=== PATIENT | female | born 1955 | race Two or more races ===

== ENCOUNTER 2024-06-21 13:13 | Outpatient (REF) | payer MEDICARE, MEDICAID, SELFPAY ==
--- OUTSIDE RECORDS SUMMARY | 2024-06-21 16:53 | XMS_ITS | Patient Health Record ---
Author Organization [facility] Address [address] [facility] [place] [address] Care Team Providers Care Group President Name Role Phone Jimmie Liu Primary Care Provider Miranda Colon Unavailable [phone] Easton Quispe Unavailable [phone] Allergies Allergen (clinical drug ingredient) Drug/Non Drug Allergy documented on EMR Reaction Allergy Type Onset Date Status penicillin V Penicillin V Potassium hives Drug Allergy Active Reason For Referral Reason please evaluate and treat patient with chronic pain Diagnosis 1 Rheumatoid arthritis , unspecified (M06.9) Diagnosis 2 Low back pain, unspe cified (M54.50) Referral Organization [facility] Referring Provider First Name Easton Referring Provider Last Name Jose Enrique Referring Provider Speciality [facility] Referred Provider Pain Clinic, [facility] Referred Provider Specialty Pain Medicin e General Notes Sheila Colon MA 08/16/2023 01:19:40 PM >Letter printed and given to PTDamion MA, Nicole 08/16/2023 02:03:58 PM >faxed with attachments Referral Priority Routine Medications Medication SIG (Take, Route, Frequency, Duration) [...] than the total amount prescribed. 05/22/2024 Active Multivitamin - 1 tablet Orally Once a day for 30 day(s) 08/30/2021 Not-Taking Daily-Sun Multivitamin - TAKE 1 TABLET BY MOUTH EVERY DAY FOR 30 DAYS for 90 Not-Taking Morphine Sulfate 15 MG 1 tab(s) Orally Once a day for 30 days Partial Fill upon Patient Request The patient may fill this prescription for less than the total amount prescribed. 05/21/2024 Active Narcan 4 MG/0.1ML as directed Nasally once for 1 days Active Enbrel 50 MG/ML 1 ml Subcutaneous q week Active Ibuprofen 800 MG 1 tablet with food or milk as needed Orally Three times a day as needed for 90 days Active FLUoxetine HCl 20 MG TAKE 4 CAPSULES BY MOUTH DAILY for 90 days 90 day supply only - patient must be seen in office prior to any more refills Active Controlled Subs. Reviewed supervising physician reviewed with to fulfill regulatory 06/16/2010 Active Immunizations Vaccine Route Administration Date Status Comme nts FLU 19YRS through 64 YRS IM Intramuscular 01/18/2015 Admin istered upper Adacel (Tdap) adult purchased IM Intramuscular 01/18/2015 Administered PCV13 - Purchased IM Intramuscular 01/18/2015 Administered lower Flu Intradermal ID Intradermal 03/31/2016 Administered Pneumovax 23 Adult IM Intramuscular 03/31/2016 Administere d FLU 19YRS through 64 YRS IM Intramuscular 01/23/2019 Admin istered FLU 19YRS through 64 YRS IM Intramuscular 03/27/2020 Admin istered Flu - High Dose IM Intramuscular 03/04/2022 Administered Social History Tobacco Use: Social History Observation Description Date Details (start date - stop date) Current Smoker NA - NA Do you smoke? Question Answer Notes What is your smoking status? current smoker 1-2 cigs a week Are you interested in quitting? Not ready to krish t Patient counseled on the dangers of tobacco use: 01/27/2023 Problems Problem Type SNOMED Code ICD Code Onset Dates Problem Status W/U Status Risk Notes Problem 54805626 Other chronic pain (G89.29) Active confirmed Problem Rheumatoid arthritis (84961996) Rheumatoid arthritis, unspecified (M06.9) Active confirmed Problem [id number] Pain in right hand (M79.641) Active confirmed Problem 67867472 Recurrent major depressive disorder, in full remission (F33.42) Active confirmed Problem 863883250520650 Pain of left hand (M79.642) Active confirmed Problem 217987241 Low back pain, unspecified (M54.50) Active confirmed Vital Signs Heart Rate 80 /min 02/10/2024 Blood pressure diastolic 82 mm Hg 02/10/2024 Height 5 ft 8.25 in in 02/10/2024 Blood pressure systolic 136 mm Hg 02/10/2024 Weight 167 lbs 02/10/2024 BMI 25.2 kg/m2 02/10/2024 Encounters Encounter Location Date Provider Diagnosis [facility] [address] [place] [address] 08/16/2023 Easton Quispe Rheumatoid arthritis , unspecified M06.9 ; Low back pain, unspecified M54.50 and Screening for colon cancer Z12.11 [facility] [address] [place] [address] 11/17/2023 Miranda Isaiah Low back pain, unspecified M54.50 ; Other chronic pain G89.29 ; Cervicalgia M54.2 ; Rheumatoid arthritis, unspecified M06.9 and Recurrent major depressive disorder, in full remission F33.42 [facility] [address] [place] [address] 02/10/2024 Easton Quispe Low back pain, unspecified M54.50 ; Other chronic pain G89.29 ; Cervicalgia M54.2 and Rheumatoid arthritis, unspecified M06.9 [facility] [address] [place] [address] 07/05/2023 Miranda Isaiah Low back pain, unspecified M54.50 [facility] [address] [place] [address] 07/19/2023 Easton Quispe Low back pain, unspecified M54.50 [facility] [address] [place] [address] 07/20/2023 Jimmie Liu [facility] [address] [place] [address] 08/02/2023 Easton Quispe Low back pain, unspecified M54.50 [facility] [address] [place] [address] 08/10/2023 Jimmie Liu [facility] [address] [place] [address] 08/13/2023 Easton Quispe Low back pain, unspecified M54.50 [facility] [address] [place], [place] 08/20/2023 Easton Quispe Low back pain, unspecified M54.50 [facility] [address] [place], [place] 08/20/2023 Jimmie Alexa [facility] [address] [place], [place] 09/07/2023 Easton Quispe Low back pain, unspecified M54.50 [facility] [address] [place], [place] 09/08/2023 Jimmie Alexa [facility] [address] [place], [place] 09/17/2023 Easton Quispe Low back pain, unspecified M54.50 [facility] [address] [place], [place] 09/27/2023 Jimmie Guzman [facility] [address] [place], [place] 10/08/2023 Miranda Isaiah Low back pain, unspecified M54.50 [facility] [address] [place], [place] 10/12/2023 Easton Quispe Low back pain, unspecified M54.50 [facility] [address] [place], [place] 11/03/2023 Jimmie Mr Low back pain, unspecified M54.50 [facility] [address] [place], [place] 11/15/2023 Miranda Isaiah Low back pain, unspecified M54.50 [facility] [address] [place], [place] 12/13/2023 Miranda Isaiah Other chronic pain G89.29 [facility] [address] [place], [place] 01/10/2024 Jimmie Mruk Other chronic pain G89.29 [facility] [address] [place], [place] 02/02/2024 Easton Quispe Other chronic pain G89.29 [facility] [address] [place], [place] 03/17/2024 Jimmie Mruk Other chronic pain G89.29 [facility] [address] [place] [phone] 04/18/2024 Jimmie Liu Other chronic pain G89.29 [facility] [address] [place] [address] 05/15/2024 Jimmie Liu [facility] [address] [place] [address] 05/17/2024 Jimmie Liu Other chronic pain G89.29 [facility] [address] [place] [phone] 05/22/2024 Jimmie Liu Other chronic pain G89.29 Assessments Encounter Date Diagnosis (ICD Code) Assessment Notes Treatment Notes Treatment Clinical Notes Section Notes 08/16/2023 Rheumatoid arthritis, unspecified (ICD-10 - M06.9) referral placed for pain management for further evaluation 08/16/2023 Low back pain, unspecified (ICD-10 - M54.50) last dose of morphine ER is 8:00am, usually takes IR morphine around 1-2pm. referral placed for pain management for further evaluation 11/17/2023 Other chronic pain (ICD-10 - G89.29) Stable with current regimen. New contract reviewed and signs by patient. Will refill Narcan as well. Will continue to follow. 11/17/2023 Low back pain, unspecified (ICD-10 - M54.50) 02/10/2024 Other chronic pain (ICD-10 - G89.29) stable with medication 02/10/2024 Low back pain, unspecified (ICD-10 - M54.50) stable with medication 07/05/2023 Low back pain, unspecified (ICD-10 - M54.50) 07/19/2023 Low back pain, unspecified (ICD-10 - M54.50) 08/02/2023 Low back pain, unspecified (ICD-10 - M54.50) 08/13/2023 Low back pain, unspecified (ICD-10 - M54.50) 08/20/2023 Low back pain, unspecified (ICD-10 - M54.50) 09/07/2023 Low back pain, unspecified (ICD-10 - M54.50) 09/17/2023 Low back pain, unspecified (ICD-10 - M54.50) 10/08/2023 Low back pain, unspecified (ICD-10 - M54.50) 10/12/2023 Low back pain, unspecified (ICD-10 - M54.50) 11/03/2023 Low back pain, unspecified (ICD-10 - M54.50) 11/15/2023 Low back pain, unspecified (ICD-10 - M54.50) 12/13/2023 Other chronic pain (ICD-10 - G89.29) 01/10/2024 Other chronic pain (ICD-10 - G89.29) 02/02/2024 Other chronic pain (ICD-10 - G89.29) 03/17/2024 Other chronic pain (ICD-10 - G89.29) 04/18/2024 Other chronic pain (ICD-10 - G89.29) 05/17/2024 Other chronic pain (ICD-10 - G89.29) 05/22/2024 Other chronic pain (ICD-10 - G89.29) 08/16/2023 Screening for colon cancer (ICD-10 - Z12.11) patient refuses colonoscopy, cologuard, and IFOB. Discussed risks of no routine screening 11/17/2023 Cervicalgia (ICD-10 - M54.2) 02/10/2024 Cervicalgia (ICD-10 - M54.2) refuses injections in neck, stable with medication 11/17/2023 Rheumatoid arthritis, unspecified (ICD-10 - M06.9) Continue POC per Rheumatology 02/10/2024 Rheumatoid arthritis, unspecified (ICD-10 - M06.9) stable with medication 11/17/2023 Recurrent major depressive disorder, in full remission (ICD-10 - F33.42) Stable with current regimen Plan Of Treatment Pending Test Test Name Order Date [place] THIN PREP WITH HPV (TPGHPVB) 08/11 X ray : CHEST PA LATERAL 08/10/2014 MAMMOGRAM - SCREENING 08/12/2011 MAMMOGRAM - SCREENING 10/15/2012 MAMMOGRAM - SCREENING 01/16/2014 MAMMOGRAM - SCREENING 01/18/2015 MAMMOGRAM - SCREENING 03/31/2016 MAMMOGRAM - SCREENING 12/22/2016 MAMMOGRAM - SCREENING 06/02/2021 HCG Urine Qualitative 07/04/2009 [facility] Drugs of Abuse Panel 10/15/2009 [facility] Drugs of Abuse Panel 03/16/2011 [facility] Drugs of Abuse Panel 03/13/2013 [facility] Drugs of Abuse Panel 05/12/2013 [facility] Drugs of Abuse Panel 04/30/2014 [facility] Drugs of Abuse Panel 11/22/2015 Endocervical Curretage 07/04/2009 Dexa-hip and spine (outside facility) Dexa-hip and spine (outside facility) Dexa-hip and spine (outside facility) MAMMO RIGHT SCREEN 01/23/2019 Drug Panel NQFP [id number] 02/14/2018 NQ CSMP PANEL [id number] 04/15/2019 NQ CSMP PANEL [id number] 03/27/2020 NQFP CSMP PANEL [id number] 06/02/2021 NQ CSMP PANEL [id number] 07/13/2022 MAMMO SCREENING BILATERAL 3D WITH EMPERATRIZ 0 07/13/2022 Future Test Test Name Order Date IFOB (IMMUNOCHEMICAL OCC BLD)- NQ 2019 Insurance Providers Payer Name Payer Address Payer Phone Subscriber Number Group Number Insured Name Patient Relationship to Insured Coverage Start Date Coverage End Date Medicare [address] [place] [id number] SAMMI FRANKLIN Self - patient is the insured Medicaid [employer] [address] [place] [id number] SAMMI FRANKLIN Self - patient is the insured Medical (General) History Medical History History ICD Code RA depression bilateral breast implants 2017 [place] risk 11% chronic neck and back pain Surgical History Surgery Date(Month/Year) breast implants
[2024-06-21 17:55] LABS: MANUAL DIFF FLAG NO
[2024-06-21 18:11] LABS: Alanine Aminotransferase 7 U/L (0-31); Aspartate Amino Transferase 18 U/L (5-31); C Reactive Protein 0.12 mg/dL (< or = 0.50); Estimated Glomerular Filt Rate > 60
[2024-06-21 18:44] LABS: Basophils Absolute Auto 0.1 X10*3/uL (0.0-0.2); Basophils Percent Auto 0.8 % (0-2); Eosinophils Absolute Auto 0.1 X10*3/uL (0.0-0.4); Eosinophils Percent Auto 1.5 % (0-4); Hematocrit 36.2 % (37.0-47.0); Hemoglobin 12.2 g/dl (12.0-16.0); Imm Gran Abs Auto 0.02 X10*3/uL (0.00-0.03); Imm Gran Pct Auto 0.3 % (0.0-0.4); Lymphocytes Absolute Auto 1.5 X10*3/uL (1.2-4.9); Lymphocytes Percent Auto 23.3 % (20-40); Mean Corpuscular HGB Conc 33.7 g/dl (31.0-35.0); Mean Corpuscular Hemoglobin 31.9 pg (27.0-33.0); Mean Corpuscular Volume 94.5 fL (80.0-98.0); Mean Platelet Volume 9.9 fL (9.4-12.3); Monocytes Absolute Auto 0.4 X10*3/uL (0.1-1.2); Neutrophils Absolute Auto 4.4 x10*3/uL (2.0-8.3); Neutrophils Percent Auto 68.1 % (45-73); Platelet Count 295 X10*3/uL (160-400); Red Blood Count 3.83 X10*6/uL (4.20-5.50); White Blood Count 6.5 X10*3/uL (4.8-10.8)
[2024-06-21 18:50] LABS: Erythrocyte Sedimentation Rate 11 MM/HR (0-20)
[2024-06-22 08:52] LABS: HBS Num1 1.19 mIU/mL (0-7.99); HBc Num1 0.06 S/CO (0.00-0.79); HBsAGNum1 0.32 S/CO (0.00-0.99); Hepatitis B Core Antibody Nonreactive (Nonreactive); Hepatitis B Surface Antigen Negative (Negative); ~Hepatitis B Surface Antibody NONREACTIVE (Nonreactive); ~Hepatitis C Antibody Nonreactive (Nonreactive)
[2024-06-24 11:39] LABS: TS Negative Control Passed; TS Panel A 0; TS Panel B 0; TS Positive Control Passed; TSpotTB Negative (Negative)
== END 2024-06-21 13:14 | disposition home or self-care (01) ==
LOC: HO.HKASLDS 13:13
PROVIDERS: Visit Provider Internal Medicine Rheumatology
DX: L40.50 Arthropathic psoriasis, unspecified (principal); M54.50 Low back pain, unspecified; G89.29 Other chronic pain; Z79.60 Long term (current) use of unspecified immunomodulators and immunosuppressants; Z79.899 Other long term (current) drug therapy
CPT/HCPCS: 36415; 82565; 84450; 84460; 85025; 85652; 86140; 86481; 86704; 86706; 86803; 87340; 99212

== ENCOUNTER 2024-06-21 13:13 | Outpatient (AMB) | payer MEDICARE, MEDICAID, SELFPAY ==
--- NOTE | 2024-06-21 13:20 | A.OFFVIS_ITS ---
Vital Signs 06/21/24 13:27 Height 5 ft 8 in Weight 169 lb 1.513 oz BMI 25.7 BP 154/80 H Blood Pressure Location Lt brachial Position Sitting Pulse 80 Pulse Source Pulse Oximeter Pulse Oximetry (%) 98 Oxygen Delivery Method Room Air Intake Visit Reasons: PSA/ATC MR RECIEVED Intake Note: pt presents today for PSA/ATC. Allergies penicillin Allergy (Uncoded 06/21/24 13:28) Hives HPI HPI PSA/ATC MR RECIEVED: Details: Off of enbrel 2 months because she did not have refills. MS all day. Increase pain in joints, especially right knee pain at night. Her PCP shut down his practice immediately. She was not given refills and requires refill of mo rphine, which she has chronically been on for 20 years without adjustment of dose prescribed by PCP. She took her last dose of morphine 160 mg this morning. She is morphine 160 mg b.i.d.. She takes morphine 15 mg PRN during the day if she needs it for pain. Initially it was started due to her chronic lower back pain secondary to degenerative disc disease. She did not pursue surgery for her lumbar spine. She has an appointment with PCP next Wednesday. [facility] Medical History Psoriatic arthritis Review of Systems Const All systems reviewed & are unremarkable except as noted in HPI and below Physical Exam Vital Signs: Last Vital Signs Pulse 80 06/21/24 13:27 BP 154/80 H 06/21/24 13:27 Pulse Ox 98 06/21/24 13:27 Oxygen Delivery Method Room Air 06/21/24 13:27 BMI result Body Mass Index 25.7 Const Other: General: Comfortable CVS: RRR Respiratory: clear to auscultation bilaterally. Good respiratory effort Skin: No lesions seen MSK: Tender to palpate right 4th MCP and right 2nd and 3rd PIP. Tender to palpate left wrist. No synovitis. Weak tiler. Shoulder abduction is 160 degrees. Good internal external rotation of bilateral shoulders. She does not have MTP tenderness. Knee flexion 90 degrees bilateral with good external rotation of bilateral hips. Assessment & Plan Assessment & Plan (1) Psoriatic arthritis: Comment: She has increased polyarthralgias and stiffness off of Enbrel. Rheumatology history: Diagnosed by Dr. Lozano at [facility] initially as seronegative rheumatoid arthritis. She has history of psoriatic arthritis. She has been on Enbrel for over 20 years. Previously failed Humira. Intolerant to methotrexate, leflunomide, sulfasalazine and tofacitinib. Code(s): L40.50 - Arthropathic psoriasis, unspecified Category: Medical Plan: Baseline labs ordered on high-risk medication/immunosuppression. I plan to continue Enbrel weekly after lab results are back. She would need in new PA for Enbrel. Return to clinic in 3 months (2) Other manager intermediate (current) drug therapy: Code(s): Z79.899 - Other care home (current) drug therapy Category: Medical Plan: See above (3) Chronic back pain: Comment: Treated with chronic narcotics morphine 160 mg b.i.d. and morphine 15 mg PRN breakthrough pain prescribed by PCP for over 20 years. She found out online that her PCP left practice and is without any refills. Code(s): M54.9 - Dorsalgia, unspecified; G89.29 - Other chronic pain Category: Medical Qualifiers: Back pain laterality: bilateral Back pain location: low back pain Sciatica presence: without sciatica Qualified Code(s): M54.50 - Low back pain, unspecified; G89.29 - Other chronic pain Plan: I have agreed to refill morphine 160 mg b.i.d. 30 day supply giving her time to establish with PCP who will take over prescription and preventing withdrawal symptoms with abrupt cessation of narcotics. She has an appointment with new PCP next Wednesday. Orders: Orders Hepatitis B,C Profile Today L40.50 - Arthropathic psoriasis, unspecified, Z79.899 - Other care home (current) drug therapy Medications: New morphine ER Defer future refills to PCP Dr. Rachel Bonds 100 mg PO Q12H 60 caps 0RF morphine ER Defer future refills to PCP Dr. Rachel Bonds 60 mg PO Q12H 60 tabs 0RF Coding Level of Care Code Est Pt Level 4 (12909) Complex EM visit Add On G2211 Diagnoses Psoriatic arthritis L40.50 Other manager intermediate (current) drug therapy Z79.899 Chronic bilateral low back pain without sciatica M54.50; G89.29 Back pain laterality: bilateral Back pain location: low back pain Sciatica presence: without sciatica
[2024-06-21 13:27] VITALS: BP 154/80; PULSE 80; O2SAT 98; BMI 25.7
--- OUTSIDE RECORDS SUMMARY | 2024-06-21 15:45 | XMS_ITS ---
Author Organization [facility] Address [address] [place] [address] Care Team Providers Care Rotational Moulding Operator Name Role Phone Jimmie Liu Primary Care Provider REASON FOR VISIT Refills/Pt called for status/ 0 left Medications Medication SIG (Take, Route, Frequency, Duration) Notes Start Date End Date Status Morphine Sulfate ER 100 MG 1 tablet Orally every 12 hrs for 30 days Partial Fill upon Patient Request The patient may fill this prescription for less than the total amount prescribed. 05/21/2024 Active Morphine Sulfate ER 60 MG 1 tablet Orally every 12 hrs for 30 days Partial Fill upon Patient Request SThe patient may fill this prescription for less than the total amount prescribed. 05/21/2024 Active Morphine Sulfate 15 MG 1 tab(s) Orally Once a day for 30 days Partial Fill upon Patient Request The patient may fill this prescription for less than the total amount prescribed. 05/21/2024 Active Encounters Encounter Location Date Provider Diagnosis [facility] [address] [place] [address] 05/17/2024 Jimmie Liu Other chronic pain G89.29 Assessments Encounter Date Diagnosis (ICD Code) Assessment Notes Treatment Notes Treatment Clinical Notes Section Notes 05/17/2024 Other chronic pain (ICD-10 - G89.29) Plan Of Treatment Medication Medication Name Sig Start Date Stop Date Notes Morphine Sulfate ER 100 MG 1 tablet Orally every 12 hrs for 30 days 05/21/2024 Partial Fill upon Patient Request The patient may fill this prescription for less than the total amount prescribed. Morphine Sulfate ER 60 MG 1 tablet Orally every 12 hrs for 30 days 05/21/2024 Partial Fill upon Patient Request SThe patient may fill this prescription for less than the total amount prescribed. Morphine Sulfate 15 MG 1 tab(s) Orally Once a day for 30 days 05/21/2024 Partial Fill upon Patient Request The patient may fill this prescription for less than the total amount prescribed. Progress Notes * SAMMI FRANKLIN MDOB:[birth year] (68 yo F)Acc No.[id number]:05/17/2024 Patient:?SAMMI FRANKLIN M :1955???Age:68 Y???Sex:Female Address:[address] [place] [address], [place] [address], [place], [address] * Refills? Refill Morphine Sulfate Tablet, 15 MG, Orally, 30 Tablet, 1 tab(s), Once a day, 30 days, Refills=0 Refill Morphine Sulfate ER Tablet Extended Release, 60 MG, Orally, 60 Tablet, 1 tablet, every 12 hrs, 30 days, Refills=0 Refill Morphine Sulfate ER Tablet Extended Release, 100 MG, Orally, 60 Tablet, 1 tablet, every 12 hrs, 30 days, Refills=0 * true * Date:? Generated for Chad borges/Elsa/eTmisaelsmitting on:?06/21/2024 03:45 PM EST
--- OUTSIDE RECORDS SUMMARY | 2024-06-21 15:45 | XMS_ITS ---
Author Organization [facility] Address [address] [place] [address] Care Team Providers Care Supervisor Smoke Control Name Role Phone Jimmie Liu Primary Care Provider REASON FOR VISIT 3 month csmp Encounters Encounter Location Date Provider Diagnosis [address] [address] 06/07/2024 Jimmie Liu Plan Of Treatment No Information Progress Notes * SAMMI FRANKLIN MDOB:[birth year] (68 yo F)Acc No.[id number]:06/07/2024 Progress Notes Patient:?SAMMI FRANKLIN Provider:?Jimmie Liu MD :1955???Age:68 Y???Sex:Female D ate:06/07/2024 Address:[address] [place] [address], [address], [facility] Subjective: * Chief Complaints: * ???1. 3 month csmp. * Medical History:? Objective: * Vitals:? Assessment: Plan: * Treatment: * * Electronic signature of Emily Liu MD on 06/21/2024 at 03:45 PM EST Sign off status: Pending * Provider:?Jimmie Liu MD Date:?06/07/19 25 Generated for Chad borges/Elsa/eTransmitting on:?06/21/2024 03:45 PM EST
--- OUTSIDE RECORDS SUMMARY | 2024-06-21 15:46 | XMS_ITS ---
Author Organization [facility] Address [address] [place] [address] Care Team Providers Care Circular Saw Filer Name Role Phone Jimmie Liu Primary Care Provider REASON FOR VISIT Send scripts to [facility] Medications Medication SIG (Take, Route, Frequency, Duration) Notes Start Date End Date Status Morphine Sulfate ER 100 MG 1 tablet Orally every 12 hrs for 30 days Partial Fill upon Patient Request The patient may fill this prescription for less than the total amount prescribed. 05/22/2024 Active Morphine Sulfate ER 60 MG 1 tablet Orally every 12 hrs for 30 days Partial Fill upon Patient Request SThe patient may fill this prescription for less than the total amount prescribed. 05/22/2024 Active Narcan 4 MG/0.1ML as directed Nasally once for 1 days Active Encounters Encounter Location Date Provider Diagnosis [facility] [address] [place] [address] 05/22/2024 Jimmie Liu Other chronic pain G89.29 Assessments Encounter Date Diagnosis (ICD Code) Assessment Notes Treatment Notes Treatment Clinical Notes Section Notes 05/22/2024 Other chronic pain (ICD-10 - G89.29) Plan Of Treatment Medication Medication Name Sig Start Date Stop Date Notes Morphine Sulfate ER 100 MG 1 tablet Orally every 12 hrs for 30 days 05/22/2024 Partial Fill upon Patient Request The patient may fill this prescription for less than the total amount prescribed. Morphine Sulfate ER 60 MG 1 tablet Orally every 12 hrs for 30 days 05/22/2024 Partial Fill upon Patient Request SThe patient may fill this prescription for less than the total amount prescribed. Paxlovid (300/100) 20 x 150 MG & 10 x 100MG 3 tablets Orally Twice a day 04/21/2022 Narcan 4 MG/0.1ML as directed Nasally once for 1 days Progress Notes * SAMMI FRANKLIN MDOB:[birth year] (68 yo F)Acc No.[id number]:05/22/2024 Patient:?SAMMI FRANKLIN :1955???Age:68 Y???Sex:Female Address:[address] [place] [address], [address], [address] * Refills? Stop Paxlovid (300/100) Tablet Therapy Pack, 20 x 150 MG & 10 x 100MG, Orally, 3 tablets, Twice a day Refill Morphine Sulfate ER Tablet Extended Release, 60 MG, Orally, 60 Tablet, 1 tablet, every 12 hrs, 30 days, Refills=0 Refill Morphine Sulfate ER Tablet Extended Release, 100 MG, Orally, 60 Tablet, 1 tablet, every 12 hrs, 30 days, Refills=0 Refill Narcan Liquid, 4 MG/0.1ML, Nasally, 1, as directed, once, 1 days, Refills=5 * true * Date:? Generated for Chad borges/Elsa/Kaelynitting on:?06/21/2024 03:45 PM EST
== END 2024-06-21 13:59 | disposition home or self-care (01) ==
PROVIDERS: Visit Provider Internal Medicine Rheumatology
DX: L40.50 Arthropathic psoriasis, unspecified (principal); Z79.899 Other long term (current) drug therapy; M54.50 Low back pain, unspecified; G89.29 Other chronic pain
CPT/HCPCS: 99214; G2211

== ENCOUNTER 2024-11-28 09:04 | Outpatient (AMB) | payer MEDICARE, MEDICAID, SELFPAY ==
--- NOTE | 2024-11-28 09:06 | MHC.OFFVIS ---
Vital Signs 11/28/24 09:07 Height 5 ft 8 in Weight 174 lb 9.698 oz BMI 26.5 BP 100/72 Blood Pressure Location Lt brachial Position Sitting Pulse 75 Pulse Source Pulse Oximeter Pulse Oximetry (%) 95 Oxygen Delivery Method Room Air Intake Visit Reasons: 3 Months Intake Note: pt presents today for PSA/ATC. Accompanied by: Self / Same As Patient Allergies penicillin Allergy (Uncoded 06/21/24 13:28) Hives HPI HPI 3 Months: Details: Doing well on enbrel. Morning stiffness is 2 hours. She is experiencing right knee pain and stiffness at night. Right knee is swollen. She hit her patella. [facility] Medical History Psoriatic arthritis Physical Exam Vital Signs: Last Vital Signs Pulse 75 11/28/24 09:07 BP 100/72 11/28/24 09:07 Pulse Ox 95 11/28/24 09:07 Oxygen Delivery Method Room Air 11/28/24 09:07 BMI result Body Mass Index 26.5 Const Other: General: Comfortable CVS: RRR Respiratory: clear to auscultation bilaterally. Good respiratory effort Skin: No lesions seen MSK: Tender to palpate right PIPs. [place] nodes and Óscar's nodes present. No synovitis. Weak sales and marketing manager. Shoulder abduction is 160 degrees. Normal internal external rotation of bilateral shoulders. She does not have MTP tenderness. Knee flexion 90 degrees bilateral with good external rotation of bilateral hips. Mild right knee effusion present. Assessment & Plan Assessment & Plan (1) Psoriatic arthritis: Comment: Controlled on Enbrel. Rheumatology history: Diagnosed by Dr. Lozano at [facility] initially as seronegative rheumatoid arthritis. She has history of psoriatic arthritis. She has been on Enbrel for over 20 years. Previously failed Humira. Intolerant to methotrexate, leflunomide, sulfasalazine and tofacitinib. Code(s): L40.50 - Arthropathic psoriasis, unspecified Category: Medical Plan: Labs for drug monitoring and high-risk medication ordered X-rays hands and feet ordered for baseline Return to clinic in 3 months (2) Other m[facility] (current) drug therapy: Code(s): Z79.899 - Other supervisor intermediates (current) drug therapy Category: Medical Plan: See above (3) Right knee pain: Code(s): M25.561 - Pain in right knee Category: Medical Plan: X-ray right knee ordered. Requisition given to patient as patient prefers x-ray to be done near her home AAOS knee strengthening program printed for patient. Declined PT for knee strengthening. Discussed importance of having exercise routine 30 minutes daily Return to clinic in 3 months Orders: Orders Aspartate Amino Transferase Today Z79.899 - Other supervisor intermediates (current) drug therapy Creatinine Today Z79.899 - Other supervisor intermediates (current) drug therapy C Reactive Protein Today Z79.899 - Other supervisor intermediates (current) drug therapy Complete Blood Count Auto Diff Today Z79.899 - Other supervisor intermediates (current) drug therapy Alanine Aminotransferase Today Z79.899 - Other m[facility] (current) drug therapy Erythrocyte Sedimentation Rate Today Z79.899 - Other supervisor intermediates (current) drug therapy XR Hand Bilat min 3v Today L40.50 - Arthropathic psoriasis, unspecified XR Foot Christopher 3V Today L40.50 - Arthropathic psoriasis, unspecified XR knee RT 2V Today L40.50 - Arthropathic psoriasis, unspecified, M17.0 - Bilateral primary osteoarthritis of knee Medications: Changed From etanercept (Enbrel SureClick) PA needed. Continuity of treatment. 50 mg subcut QWEEK 4 mL 2RF To etanercept (Enbrel SureClick) 50 mg subcut QWEEK 4 mL 2RF Coding Level of Care Code Est Pt Level 4 (25710) Complex EM visit Add On G2211 Diagnoses Psoriatic arthritis L40.50 Other mcc (current) drug therapy Z79.899 Right knee pain M25.561
[2024-11-28 09:07] VITALS: BP 100/72; PULSE 75; O2SAT 95; BMI 26.5
== END 2024-11-28 09:44 | disposition home or self-care (01) ==
LOC: HO.RHES 09:05
PROVIDERS: PCP Student in an Organized Health Care Education/Training Program; Visit Provider Internal Medicine Rheumatology
DX: L40.50 Arthropathic psoriasis, unspecified (principal); Z79.899 Other long term (current) drug therapy; M25.561 Pain in right knee
CPT/HCPCS: 99214; G2211

== ENCOUNTER → 2024-11-28 09:04 | Outpatient (BNVA) | payer MEDICARE, MEDICAID, SELFPAY | PROVIDERS: PCP Student in an Organized Health Care Education/Training Program; Visit Provider Internal Medicine Rheumatology | DX: M25.561 Pain in right knee (principal); L40.50 Arthropathic psoriasis, unspecified; Z79.899 Other long term (current) drug therapy | CPT/HCPCS: 99212 ==